=== PATIENT | female | born 1985 | race Caucasian/White ===

== ENCOUNTER → 2016-06-14 | Outpatient (CLI) | payer OTHER ==
[2016-06-14 08:30] LABS: BLOOD UREA NITROGEN 19 mg/dL (7-18)
== END | disposition home or self-care (01) ==
LOC: LAB 08:05
PROVIDERS: ATTEND Internal Medicine Endocrinology, Diabetes & Metabolism
DX: D35.2 Benign neoplasm of pituitary gland (principal); E22.1 Hyperprolactinemia; E03.9 Hypothyroidism, unspecified
CPT/HCPCS: 36415; 80048; 82533; 84146; 84305; 84439; 84443

== ENCOUNTER → 2016-08-27 | Outpatient (CLI) | payer OTHER ==
[2016-08-27 10:20] LABS: ASPARTATE AMINO TRANSFERASE 16 U/L (15-37); BLOOD UREA NITROGEN 19 mg/dL (7-18)
== END | disposition home or self-care (01) ==
LOC: LAB 09:40
PROVIDERS: ATTEND Internal Medicine Endocrinology, Diabetes & Metabolism
DX: E03.9 Hypothyroidism, unspecified (principal); N18.1 Chronic kidney disease, stage 1; D49.7 Neoplasm of unspecified behavior of endocrine glands and other parts of nervous system; F41.9 Anxiety disorder, unspecified; F32.9 Major depressive disorder, single episode, unspecified; E55.9 Vitamin D deficiency, unspecified; E22.1 Hyperprolactinemia
CPT/HCPCS: 36415; 80053; 84146; 84439; 84443; 85025